=== PATIENT | male | born 1970 | race Two or more races ===

== ENCOUNTER 2023-02-04 11:35 | Emergency (ER) | payer BC ==
[~2023-02-04] VITALS: Ht 182.9 cm; Wt 120.2 kg
--- NOTE | 2023-02-04 12:45 | NUR ---
BIB SELF CC TWISTED FOOT LEFT LAST NIGHT PAIN AND SWELLING NOTED. AMBULATORY BUT WITH PAIN. EM AWARE. NUIRSING CARE AND PLAN CONTINUED. AWAITING FOR MD ORDERS.
--- NOTE | 2023-02-04 12:47 | NUR ---
[PT ORDERED XRAY
--- NOTE | 2023-02-04 13:22 | NUR ---
radio officer at bedside
[2023-02-04] MEDS ORDERED: IBUP-1955 PO (14:19)
--- NOTE | 2023-02-04 14:48 | NUR ---
pt had a short leg post cast with crutches dispensed. gait instructed. tech at bedside
[2023-02-04 14:54] VITALS: BP 130/90
== END 2023-02-04 14:55 | disposition home or self-care (01) ==
LOC: ER 11:41
DX: S92.352A Displaced fracture of fifth metatarsal bone, left foot, initial encounter for closed fracture (principal); I10 Essential (primary) hypertension; X50.1XXA Overexertion from prolonged static or awkward postures, initial encounter; Y93.89 Activity, other specified; Y92.89 Other specified places as the place of occurrence of the external cause; Y99.8 Other external cause status
CPT/HCPCS: 73600-TC; 73630-TC

== ENCOUNTER 2024-05-25 00:35 | Emergency (ER) | payer SELFPAY ==
[~2024-05-25] VITALS: Ht 182.9 cm; Wt 117.9 kg
[~2024-05-25 00:35] MED LIST: IBUP-1955 PO
[2024-05-25] MEDS ORDERED: NAPROXEN 250 MG TABLET ONE (01:38)
[2024-05-25] MEDS: NAPROXEN 250 MG TABLET PO ONE (01:39)
[2024-05-25] MEDS ORDERED: ACET-2605 PO (03:48)
[2024-05-25] MEDS ORDERED: LIDO30AD10 TP (03:48)
[2024-05-25] MEDS ORDERED: IBUP-1490 PO (03:48)
[2024-05-25 04:00] VITALS: BP 118/82; TEMP 98; O2SAT 99
== END 2024-05-25 04:00 | disposition home or self-care (01) ==
LOC: ER 00:37
DX: R07.81 Pleurodynia (principal); I10 Essential (primary) hypertension; Z79.1 Long term (current) use of non-steroidal anti-inflammatories (NSAID); Z79.899 Other long term (current) drug therapy
CPT/HCPCS: 71100-TC

== ENCOUNTER 2024-05-29 06:31 | Emergency (ER) | payer SELFPAY ==
[~2024-05-29] VITALS: Ht 182.9 cm; Wt 117.9 kg
[~2024-05-29 06:31] MED LIST changes: +ACET-2605 PO; +IBUP-1490 PO; +LIDO30AD10 TP
[2024-05-29] MEDS ORDERED: KETOROLAC TROMETHAMINE INJ 30 MG/ML VIAL ONE (07:22)
[2024-05-29] MEDS: KETOROLAC TROMETHAMINE INJ 30 MG/ML VIAL IV ONE (07:26)
[2024-05-29 07:47] LABS: BASOPHILS # (AUTO) 0.1 K/uL (0.0-0.2); BASOPHILS % (AUTO) 0.4 % (0.0-2.0); EOSINOPHILS # (AUTO) 0.4 K/uL (0.0-0.7); EOSINOPHILS % (AUTO) 2.9 % (0.0-6.0); HEMATOCRIT 50 % (39-51); HEMOGLOBIN 16.9 g/dL (13.5-17.5); LYMPHOCYTES # (AUTO) 3.4 K/uL (0.8-4.8); LYMPHOCYTES % (AUTO) 25.1 % (20.0-44.0); MEAN CORPUSCULAR HEMOGLOBIN 28 PG (26.0-33.0); MEAN CORPUSCULAR HGB CONC 34 g/dl (31.0-36.0); MEAN CORPUSCULAR VOLUME 82 fL (80-96); MONOCYTES # (AUTO) 1.3 K/uL (0.1-1.30); MONOCYTES % (AUTO) 9.4 % (2.0-12.0); NEUTROPHILS # (AUTO) 8.4 K/uL (1.8-8.9); NEUTROPHILS % (AUTO) 62.2 % (43.0-81.0); PLATELET COUNT (AUTO) 305 K/uL (150-450); RED BLOOD CELL COUNT(AUTO) 6.06 MIL/uL (4.5-6.0); RED CELL DISTRIBUTION WIDTH 14.7 % (11.5-15.0); WHITE BLOOD COUNT (AUTO) 13.5 K/uL (4.3-11.0)
[2024-05-29 07:49] LABS: CARBON DIOXIDE 27 mmol/L (21-32); CHLORIDE 105 mmol/L (98-107); CREATININE 0.9 mg/dL (0.6-1.3); GLUCOSE 99 mg/dL (74-106); POTASSIUM 4.2 mmol/L (3.5-5.1); SODIUM SERUM 140 mmol/L (136-145); UREA NITROGEN, BLOOD 21 mg/dL (7-18)
[2024-05-29 08:01] LABS: ALANINE AMINOTRANSFERASE 50 U/L (12-78); ALBUMIN 3.2 g/dL (3.4-5.0); ALKALINE PHOSPHATASE 90 U/L (46-116); ASPARTATE AMINOTRANSFERASE 20 U/L (15-37); BILIRUBIN,DIRECT 0.1 mg/dL (0.0-0.2); BILIRUBIN,TOTAL 0.4 mg/dL (0.2-1.0); NT-PRO BNP 20 pg/mL (0-125); TOTAL PROTEIN, SERUM 7.3 g/dL (6.4-8.2)
[2024-05-29] MEDS ORDERED: CYCL5TAB PO (08:22)
[2024-05-29] MEDS ORDERED: CYCLOBENZAPRINE 10 MG TABLET ONE (08:35)
[2024-05-29] MEDS: CYCLOBENZAPRINE 10 MG TABLET PO ONE (08:41)
[2024-05-29 08:43] VITALS: BP 145/80; TEMP 98.2; O2SAT 96
[2024-05-29 09:38] LABS: BAND % (MANUAL) 2 % (0.0-5.0); EOSINOPHILS % (MANUAL) 1 % (0-4); LYMPHOCYTES % (MANUAL) 29 % (16-48); MONOCYTES % (MANUAL) 10 % (0-11.0); NEUTROPHILS % (MANUAL) 58 (42-76); PLATELET ESTIMATE ADEQUATE
== END 2024-05-29 08:43 | disposition home or self-care (01) ==
LOC: ER 06:31
DX: R07.81 Pleurodynia (principal); I10 Essential (primary) hypertension
CPT/HCPCS: 99285; 96374; 71045; 93005; 85025; 80048; 80076; 36415; 84484; 83880; 85007; J1885

== ENCOUNTER 2024-07-27 00:26 | Emergency (ER) | payer SELFPAY ==
[~2024-07-27] VITALS: Ht 182.9 cm; Wt 117.9 kg
[~2024-07-27 00:26] MED LIST changes: +CYCL5TAB PO
[2024-07-27] MEDS ORDERED: KETOROLAC TROMETHAMINE INJ 30 MG/ML VIAL ONE (01:44)
[2024-07-27] MEDS ORDERED: LIDOCAINE 5% (PATCH) 1 EA PATCH TP ONE (01:44)
[2024-07-27] MEDS: BACLOFEN (10 MG) 10 MG TABLET PO ONE (01:45)
[2024-07-27] MEDS ORDERED: BACLOFEN (10 MG) 10 MG TABLET ONE (01:45)
[2024-07-27] MEDS: KETOROLAC TROMETHAMINE INJ 30 MG/ML VIAL IM ONE (01:45)
[2024-07-27] MEDS: LIDOCAINE 5% (PATCH) 1 EA PATCH TP SCH (01:46)
[2024-07-27] MEDS ORDERED: KETO10TA2 PO (02:18)
[2024-07-27] MEDS ORDERED: BACL5TAB PO (02:18)
[2024-07-27] MEDS ORDERED: LEVO750T46 PO (02:18)
[2024-07-27 02:26] VITALS: BP 136/89; TEMP 98.9; O2SAT 96
== END 2024-07-27 02:27 | disposition home or self-care (01) ==
LOC: ER 00:27
DX: M54.6 Pain in thoracic spine (principal); J18.9 Pneumonia, unspecified organism; R05.9 Cough, unspecified; I10 Essential (primary) hypertension; Z87.19 Personal history of other diseases of the digestive system
CPT/HCPCS: 99283; 71045; 96372; J1885

== ENCOUNTER 2025-06-14 21:39 | Emergency (ER) | payer BC ==
[~2025-06-14] VITALS: Ht 182.9 cm; Wt 117.9 kg
[~2025-06-14 21:39] MED LIST changes: +BACL5TAB PO; +KETO10TA2 PO; +LEVO750T46 PO
[2025-06-14] MEDS ORDERED: IBUPROFEN 400 MG TABLET ONE (22:13)
[2025-06-14] MEDS: IBUPROFEN 400 MG TABLET PO ONE (22:18)
[2025-06-14 22:31] LABS: PLATELET COUNT (AUTO) 296 K/uL (150-450); RED BLOOD CELL COUNT(AUTO) 6.47 MIL/uL (4.5-6.0); RED CELL DISTRIBUTION WIDTH 14.7 % (11.5-15.0); WHITE BLOOD COUNT (AUTO) 12.7 K/uL (4.3-11.0)
[2025-06-14 22:44] LABS: CALCIUM, SERUM 9.0 mg/dL (8.5-10.1); CREATININE 1.1 mg/dL (0.6-1.3); SODIUM SERUM 137 mmol/L (136-145); UREA NITROGEN, BLOOD 16 mg/dL (7-18)
[2025-06-14] MEDS ORDERED: PSEUDOEPHEDRINE HCL 30 MG TABLET ONE (22:55)
[2025-06-14 22:58] LABS: ASPARTATE AMINOTRANSFERASE 24 U/L (15-37); NT-PRO BNP 13 pg/mL (0-125); TOTAL PROTEIN, SERUM 7.9 g/dL (6.4-8.2)
[2025-06-14] MEDS: PSEUDOEPHEDRINE HCL 30 MG TABLET PO ONE (22:58)
[2025-06-14 23:43] VITALS: BP 149/99; TEMP 213.1; O2SAT 94
== END 2025-06-14 23:44 | disposition home or self-care (01) ==
LOC: ER 21:44
DX: U07.1 COVID-19 (principal); I10 Essential (primary) hypertension; R05.9 Cough, unspecified; R07.89 Other chest pain; R09.81 Nasal congestion; R50.9 Fever, unspecified; Z79.899 Other long term (current) drug therapy
CPT/HCPCS: 36415; 71045-TC; 80048-TC; 80076-TC; 83880; 84484-TC; 85025-TC